=== PATIENT | female | born 1995 | race Caucasian/White ===

== ENCOUNTER 2017-04-22 16:11 | Emergency (ER) | payer OTHER ==
[2017-04-22 16:51] VITALS: BP 112/63
--- NOTE | 2017-04-22 17:33 | UC ---
Throat Pain/Nasal Yusef HPI - HPI Summary HPI Summary: Patient presents to the with CC of sore throat x 2 days. Denies coughing, fever, sputum production or other respiratory distress. Otherwise healthy. 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 + odynophagia +Dysphagia. Denies fevers, sweats or chills. - History of Current Complaint Hx Obtained From: Patient Hx Last Menstrual Period: 03/31/17 ?: No Onset/Duration: Sudden Onset Severity: Moderate Pain Intensity: 5 Pain Scale Used: 0-10 Numeric Associated Signs & Symptoms: Positive: Dysphagia, Hoarseness. Negative: Drooling, Wheezing, Sinus Discomfort, Nasal Discharge, Fever, Vomiting <Yomaira Conteh - Last Filed: 04/22/17 17:26> <Emili Castro - Last Filed: 04/22/17 18:17> - History of Current Complaint Chief Complaint: UCRespiratory Stated Complaint: THROAT Time Seen by Provider: 04/22/17 16:49 - Allergies/Home Medications Allergies/Adverse Reactions: Allergies Allergy/AdvReac Type Severity Reaction Status Date / Time No Known Allergies Allergy Verified 04/22/17 16:50 Home Medications: Home Medications GuaiFENesin DM* [Robitussin DM*] 10 ml PO Q6H PRN 04/22/17 [History Confirmed ] Ibuprofen [Advil] 200 mg PO 04/22/17 [History] PMH/Surg Hx/FS Hx/Imm Hx Previously Healthy: Yes - Surgical History Surgical History: None - Family History Known Family History: Positive: Unknown - Social History Occupation: Student Lives: With Family Alcohol Use: Rare Substance Use Type: None Smoking Status (MU): Never Smoked Tobacco <Yomaira Conteh - Last Filed: 04/22/17 17:26> Review of Systems Constitutional: Negative Skin: Negative ENT: Sore Throat Respiratory: Negative Gastrointestinal: Negative Motor: Negative Neurovascular: Negative Musculoskeletal: Negative Neurological: Negative Psychological: Negative Is Patient Immunocompromised?: No All Other Systems Reviewed And Are Negative: Yes <Yomaira Conteh - Last Filed: 04/22/17 17:26> Physical Exam Triage Information Reviewed: Yes Appearance: Well-Appearing, Well-Nourished Vital Signs: Initial Vital Signs Temp 99.0 F 04/22/17 16:45 Pulse 78 04/22/17 16:45 Resp 18 04/22/17 16:45 BP 112/63 04/22/17 16:45 Pulse Ox 100 04/22/17 16:45 Vital Signs Reviewed: Yes Eye Exam: Normal Eyes: Positive: Conjunctiva Clear Neck exam: Normal Neck: Positive: Supple, No Lymphadenopathy Respiratory Exam: Normal Respiratory: Positive: Chest non-tender, Lungs clear Cardiovascular Exam: Normal Cardiovascular: Positive: RRR Musculoskeletal Exam: Normal Musculoskeletal: Positive: Strength Intact Neurological Exam: Normal Neurological: Positive: Alert Psychological Exam: Normal Psychological: Positive: Normal Response To Family Skin Exam: Normal <Yomaira Conteh - Last Filed: 04/22/17 17:26> Vital Signs: Initial Vital Signs Temp 99.0 F 04/22/17 16:45 Pulse 78 04/22/17 16:45 Resp 18 04/22/17 16:45 BP 112/63 04/22/17 16:45 Pulse Ox 100 04/22/17 16:45 <Emili Castro - Last Filed: 04/22/17 18:17> Throat Pain/Nasal Course/Dx - Course Course Of Treatment: Patient evaluated for sore throat. Strep negative. No tonsillar swelling or exudates. Posterior pharynx with erythema. Uvula midline. No tonsillar enlargement. Treatment options discussed. Patient is encouraged to follow up with PCP and she is given 5 days prednisone. 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 She is OK with plan and discharge. - Differential Dx/Diagnosis Differential Diagnosis/HQI/PQRI: Peritonsillar Abscess, Pharyngitis, Tonsillitis , URI Provider Diagnoses: Pharyngitis <Yomaira Conteh - Last Filed: 04/22/17 17:26> Discharge <Yomaira Conteh - Last Filed: 04/22/17 17:26> <Emili Castro - Last Filed: 04/22/17 18:17> - Discharge Plan Condition: Stable Disposition: HOME Prescriptions: predniSONE TAB* [Deltasone TAB*] 50 mg PO DAILY #5 tab MDD 1 Patient Education Materials: Pharyngitis (ED) Referrals: No Primary Care Phys,NOPCP [Primary Care Provider] - Additional Instructions: Take 50mg once daily for 5 days of Prednisone Tonight, take 600mg ibuprofen Drink plenty of fluids Honey may help soothe the scratchiness of the throat Attestation Statement User Type: Provider - I was available for consult. This patient was seen by the MARLEE. The patient was not presented to, seen by, or examined by me. -Judd <Emili Castro - Last Filed: 04/22/17 18:17>
== END 2017-04-22 17:35 | disposition home or self-care (01) ==
LOC: UCEAST 16:11
DX: J02.9 Acute pharyngitis, unspecified (principal)
CPT/HCPCS: 87651; 99202; G0463